=== PATIENT | male | born 1940 | race Hispanic/Latino ===

== ENCOUNTER 2020-08-01 08:02 | Observation (INO) | payer OTHER, MEDICARE ==
--- OUTSIDE RECORDS SUMMARY | 2020-08-01 08:07 | XMS REPORT | Continuity of Care Document ---
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 Diabetes 1-25 Family mellitus Mellitus 00:00: Practi c without without 00 e complicati Complicati on on Essential Essential Problem Active Gracie jazmin hypertensi Hypertensi 1-25 Fa sarah on on 00:00: Practic 00 e Pneumonia Pneumonia Problem Active Gracie jazmin 1-25 Family 00:00: Practic 00 e 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 Social History Smoking Status Start Date Stop Date Source Former Smoker [facility] daryl Medications Ordered Filled Start Stop Current Ordering Indication Dosage Frequency Signature Comments Components Source Medication Medication Date Date Medication? Clinician (SIG) Name Name allopurinol allopurinol No 1 Q1D allopurino [facility] 100 mg 100 mg l 100 mg Family tablet Take tablet Take tablet Practic 1 tablet 1 tablet Take 1 e every day every day tablet by oral by oral every day route. route. by oral route. atorvastati atorvastati No 1 Q1D atorvastat [facility] n 10 mg n 10 mg in 10 mg Famil y tablet Take tablet Take tablet Practic 1 tablet 1 tablet Take 1 e every day every day tablet by oral by oral every day route. route. by oral route. azithromyci azithromyci No 1 Q56H azithromyc [facility] n 500 mg n 500 mg in 500 mg Fa sarah tablet Take tablet Take tablet Practic 1 tablet 3 1 tablet 3 Take 1 e times a times a tablet 3 week by week by times a oral route oral route week by with meals with meals oral route for 30 for 30 with meals days. days. for 30 days. Calcium 500 Calcium 500 Calcium [facility] 1500mg 1500mg 500 1500mg Famil y total/day total/day total/day Practic e ethambutol ethambutol No 3 Q56H ethambutol [facility] 400 mg 400 mg 400 mg Family tablet Take tablet Take tablet Practic 3 tablets 3 3 tablets 3 Take 3 e times a times a tablets 3 week by week by times a oral route oral route week by with meals with meals oral route for 30 for 30 with meals days. days. for 30 days. Motrin IB Motrin IB No Motrin IB [facility] 200 mg 200 mg 200 mg Family capsule 2 capsule 2 capsule 2 Practic in AM, 1 at in AM, 1 at in AM, 1 e noon, 1 at noon, 1 at at noon, 1 4pm, 2 at 4pm, 2 at at 4pm, 2 bedtime bedtime at bedtime One A Day One A Day No 1 Q1D One A Day [facility] tablet Take tablet Take tablet Family 1 tablet 1 tablet Take 1 Pract ic every day every day tablet e by oral by oral every day route. route. by oral route. pantoprazol pantoprazol No 1 Q1D pantoprazo [facility] e 40 mg e 40 mg le 40 mg Famil y tablet,ann marie tablet,ann marie tablet,del Practic yed release yed release ayed e Take 1 Take 1 release tablet tablet Take 1 every day every day tablet by oral by oral every day route. route. by oral route. propranolol propranolol No 1 Q1D propranolo [place] 20 mg 20 mg l 20 mg Family tablet Take tablet Take tablet Practic 1 tablet 1 tablet Take 1 e every day every day tablet by oral by oral every day route. route. by oral route. rifampin rifampin No 2capsul Q56H rifampin [facility] 300 mg 300 mg e(s) 300 mg Family capsule capsule capsule Practi c Take 2 Take 2 Take 2 e capsules 3 capsules 3 capsules 3 times a times a times a week by week by week by oral route oral route oral route with meals with meals with meals for 30 for 30 for 30 days. days. days. sulfamethox sulfamethox No sulfametho [facility] azole 800 azole 800 xazole 800 Family mg-trimetho mg-trimetho mg-trimeth Practic prim 160 mg prim 160 mg oprim 160 e tablet TAKE tablet TAKE mg tablet ONE (1) ONE (1) TAKE ONE TABLET(S) TABLET(S) (1) BY MOUTH BY MOUTH TABLET(S) EVERY EVERY BY MOUTH TWELVE TWELVE EVERY HOURS FOR HOURS FOR TWELVE 14 DAYS. 14 DAYS. HOURS FOR 14 DAYS. Immunizations Ordered Immunization Filled Immunization Date Status Commen ts Source Name Name pneumococcal pneumococcal 2020-02-07 Completed [facility] sarah polysaccharide PPV23 polysaccharide PPV23 00:00:00 Practice influenza, influenza, 2020-01-[address] [facility] injectable, injectable, 00:00:00 Practice quadrivalent quadrivalent influenza, high-dose, influenza, high-dose, 2019-02-[address] [facility] quadrivalent quadrivalent 00:00:00 Practice pneumococcal, pneumococcal, 2015-04-08 [facility] unspecified unspecified 00:00:00 Practice formulation formulation Vital Signs Vital Name Observation Time Observation Value Comments Source BP Diastolic 2020-05-13 00:00:00 74 mm[Hg] [facility] Height 2020-05-13 00:00:00 68 [in_i] [facility] BMI (Body Mass 2020-05-13 00:00:00 22 kg/m2 [facility] Family Index) Practice BP Systolic 2020-05-13 00:00:00 132 mm[Hg] [facility] Body Weight 2020-05-13 00:00:00 145 [lb_av] [facility] BP Diastolic 2020-05-02 00:00:00 62 mm[Hg] [facility] Height 2020-05-02 00:00:00 68 [in_i] [facility] BMI (Body Mass 2020-05-02 00:00:00 21.7 kg/m2 [facility] Family Index) Practice BP Systolic 2020-05-02 00:00:00 126 mm[Hg] [facility] Body Weight 2020-05-02 00:00:00 143 [lb_av] [facility] Procedures Procedure Date / Time Performed Performing Clinician [facility] e X-RAY OF CHEST 2 VIEW 2020-05[facility], [facility]/o contrast 2020-05-02 00:00:00 [facility] Practice Thumb Surgery [facility] Appendectomy [facility] Plan of Care Planned Activity Planned Date Details Comments Source Diagnostic Test 2020-05-13 CBC w/ auto diff [code Vi llvashti Family Pending 00:00:00 = CBC w/ auto diff] Practice Diagnostic Test 2020-05-13 erythrocyte [facility] Fami ly Pending 00:00:00 sedimentation rate by Practi ce westergren method [code = erythrocyte sedimentation rate by westergren method] Diagnostic Test 2020-05-13 CMP, serum or plasma [facility] Pending 00:00:00 [code = CMP, serum or Practi ce plasma] Diagnostic Test 2020-05-13 mycobacterium sp, [facility] Pending 00:00:00 culture, bronchial Practice [code = mycobacterium sp, culture, bronchial] Future Appointment 2020-08-16 Sheila Teagueanthony, [facility] 13:00:00 [facility]; [address], [place] [address] Encounters Start End Encounter Admission Attending Care Care Encounter Source Date/Time Date/Time Type Type Clinicians Facility Department ID 2020-05-13 2020-05-[address] [facility] [place] - [id number] [facility] 00:00:00 00:00:[address] [facility] Pract joyce MD: [id number] kelsey [facility], [address], [place] [address] , Ph. 2020-05-06 2020-05-[address] [facility] [id number] 05:59:00 05:59:00 l [facility] 2020-05-02 2020-05-[address] [facility] [place] - [id number] [facility] 00:00:00 00:00:[address] [facility] - Pract joyce MD: [id number] GOODMANMemgonzalo kelsey [facility] [address], [place] [address] , Ph. 2020-03-24 2020-03-24 Outpatient [facility] [id number] 09:53:00 09:53:00 Reji [facility] Results Test Description Test Time Test Comments Results Result Comments Source Hypersensitivity pneumonitis panel - Serum 2020-05-07 00:00: 00 Test Item Value Reference Range Interpretation Comme nts aspergillus fumigatus (test code = aspergillus fumigatus) negative negative micropolyspora faeni (test code = micropolyspora faeni) negative negative pigeon serum (test code = pigeon serum) negative negative T. candidus (test code = T. candidus) negative negative T. vulgaris (test code = T. vulgaris) negative negative S. viridis (test code = S. viridis) negative negative [facility] [Presence] in Tissue by Immune stain 2020-05-07 00:00:00 Test Item Value Reference Range Interpretation Comments index value (test code = index <0.50 value) aspergillus Ag,EIA,serum (test not detected code = aspergillus Ag,EIA,serum) [facility] [id number] 00:00:00 Test Item Value Reference Range Interpretation Comments white blood cell count (test 8.7 thousand/uL 3.8-10.8 code = white blood cell count) red blood cell count (test 4.22 million/uL 4.20-5.80 code = red blood cell count) hemoglobin (test code = 11.9 g/dL 13.2-17.1 L hemoglobin) hematocrit (test code = 37.8 % 38.5-50.0 L hematocrit) MCV (test code = MCV) 89.6 fL 80.0-100.0 MCH (test code = MCH) 28.2 pg 27.0-33.0 MCHC (test code = MCHC) 31.5 g/dL 32.0-36.0 L RDW (test code = RDW) 14.7 % 11.0-15.0 platelet count (test code = 271 thousand/uL 140-400 platelet count) MPV (test code = MPV) 10.5 fL 7.5-12.5 [facility] by Westergren method 2020-05-03 00:00:00 Test Item Value Reference Range Interpretation Comments sed rate by modified westergren 118 mm/h < or = 20 H (test code = sed rate by modified westergren) [facility] - [id number] 00:00:00 Test Item Value Reference Range Interpretation Comments absolute neutrophils (test code 6003 cells/uL 1402-9432 = absolute neutrophils) absolute lymphocytes (test code 2175 cells/uL 850-3900 = absolute lymphocytes) absolute monocytes (test code = 435 cells/uL 200-950 absolute monocytes) absolute eosinophils (test code 0 cells/uL 15-500 L = absolute eosinophils) absolute basophils (test code = 87 cells/uL 0-200 absolute basophils) neutrophils (test code = 69.0 % neutrophils) lymphocytes (test code = 25.0 % lymphocytes) monocytes (test code = 5.0 % monocytes) eosinophils (test code = 0 % eosinophils) basophils (test code = 1.0 % basophils) CBC morphology (test code = CBC normal morphology) [facility] PracticeComprehensive metabolic 2000 panel - Serum or Plasma 2020-05-03 00:00:00 Test Item Value Reference Range Interpretation Comments ALT (test code = ALT) 25 U/L 0-55 AST (test code = AST) 31 U/L 5-34 BUN (test code = BUN) 20.1 mg/dL 8.4-25.0 alk phos (test code = alk 59 unit/L 40-150 phos) glucose (test code = 123 mg/dL 70-99 H glucose) albumin (test code = 3.6 g/dL 3.4-5.1 albumin) creatinine (test code = 1.34 mg/dL 0.72-1.25 H creatinine) eGFR non- 51 mL/min/1.73m2 A (test code = eGFR non-) total bilirubin (test code = 0.3 mg/dL 0.2-1.2 total bilirubin) eGFR - >60 (test code = eGFR - ) sodium (test code = sodium) 142 mEq/L 135-145 potassium (test code = 4.9 mEq/L 3.5-5.3 potassium) chloride (test code = 105 mmol/L 98-110 chloride) total protein (test code = 7.1 g/dL 6.1-8.2 total protein) calcium (test code = 9.2 mg/dL 9.0-10.2 calcium) CO2 (test code = CO2) 29.6 mmol/L 20.0-32.0 anion gap (test code = anion 7 calc gap) [facility]
[2020-08-01] MEDS ORDERED: NA CHLORIDE 0.9% 1,000 ML ONE ×2 (08:46→09:41)
[2020-08-01] MEDS ORDERED: FAMOTIDINE 20 MG/2 ML VIAL IV ONE (08:46)
--- NOTE | 2020-08-01 09:06 | RAD REPORT ---
EXAM DESCRIPTION: US - Abdomen Exam Limited - 08/01/2020 8:48 am CLINICAL HISTORY: evaluate gallbladder Right upper quadrant pain COMPARISON: No comparisons FINDINGS: The gallbladder demonstrates no gallstones. No pericholecystic fluid or gallbladder wall t hickening. The common bile duct is normal measuring 4 mm. The liver demonstrates no findings of intrahepatic biliary dilatation. IMPRESSION: Unremarkable examination.
--- NOTE | 2020-08-01 09:07 | RAD REPORT ---
EXAM DESCRIPTION: RAD - Chest Single View - 08/01/2020 8:37 am CLINICAL HISTORY: ABDOMINAL DISTENTION Chest pain. COMPARISON: No comparisons FINDINGS: Portable technique limits examination quality. Moderate bilateral pulmonary opacities are present, greater on the right, with trace pleural effusion s. The findings may be related to infection or pulmonary edema. The heart is upper limit normal in si ze.
[2020-08-01 09:10] LABS: Absolute Lymphocytes (CBC) 1.4 K/uL (0.7-4.9); Basophils % 0.3 % (0-1.3); Hematocrit 34.3 % (39.6-49.0); MPV 8.4 fL (7.6-11.3)
[2020-08-01 09:15] LABS: Urine Blood Trace-intact (Negative); Urine Glucose Negative (Negative); Urine Protein Trace (Negative); Urine Specific Gravity 1.015 (1.005-1.030); Urine pH 5.5 (5.0-7.0)
--- NOTE | 2020-08-01 09:15 | RAD REPORT ---
EXAM DESCRIPTION: CTAbdomen Pelvis W Contrast - 08/01/2020 8:57 am CLINICAL HISTORY: Abdominal pain. ABD PAIN COMPARISON: No comparisons TECHNIQUE: Biphasic CT imaging of the abdomen and pelvis was performed with 100 ml non-ionic IV cont rast. All CT scans are performed using dose optimization technique as appropriate and may include automated exposure control or mA/KV adjustment according to patient size. FINDINGS: Ill-defined interstitial and tree-in-bud opacities in both lung bases, greater on the righ t. Gallbladder appears distended. No aggressive liver lesion or biliary dilatation. The spleen, adrenal glands and kidneys are within normal limits. Mild edema/fluid is seen surrounding the pancreas sugges ting pancreatitis. Prominent sigmoid diverticulosis is present without diverticulitis. Moderate retained stool throughou t the rectosigmoid colon. Aortoiliac atherosclerosis. The appendix is absent. Small right fat contain ing inguinal hernia. No evidence of significant lymphadenopathy. No suspicious bony findings. IMPRESSION: Mild pancreatitis is possible. Suggest correlation with amylase and lipase levels.
[2020-08-01 09:16] LABS: Protime INR 1.04
[2020-08-01 09:29] LABS: ALT/SGPT 78 U/L (12-78); AST/SGOT 142 U/L (15-37); Albumin 3.1 g/dL (3.4-5.0); Alkaline Phosphatase 153 U/L (45-117); BUN Blood Urea Nitrogen 22 mg/dL (7-18); Bicarbonate 26 mmol/L (21-32); Bilirubin Direct 0.5 mg/dL (0-0.2); Bilirubin Total 0.8 mg/dL (0.2-1.0); Glucose Level 131 mg/dL (74-106); Lipase 11572 U/L (73-393); Magnesium 2.2 mg/dL (1.8-2.4); NT PRO-BNP 803 pg/mL (<450); Potassium 4.1 mmol/L (3.5-5.1); Protein, Total 7.9 g/dL (6.4-8.2); Sodium Level 137 mmol/L (136-145); Troponin (Emerg Dept Use Only) < 0.02 ng/mL (0.0-0.045)
--- NOTE | 2020-08-01 09:37 | ER ---
Nurse's Notes [facility] Name: Matheus Lea Age: 80 yrs Sex: Male : 1940 Arrival Date: 08/01/2020 Time: 08:05 Bed 24 Private MD: Diagnosis: Abdominal tenderness;Acute pancreatitis;Mycobacterial infection, unspecified;Type 2 diabetes mellitus Presentation: 08/01 08:15 Chief complaint: Patient states: RLQ abd pain started last night. No known fever. No mg2 N/V/D. Coronavirus screen: Client denies travel out of the [place] in the last 14 days. At this time, the client does not indicate any symptoms associated with coronavirus-19. Ebola Screen: Patient denies travel to an Ebola-affected area in the 21 days before illness onset. Initial Sepsis Screen: Does the patient meet any 2 criteria? No. Patient's initial sepsis screen is negative. Does the patient have a suspected source of infection? Yes: Acute abdominal pain. Risk Assessment: Do you want to hurt yourself or someone else? Patient reports no desire to harm self or others. Onset of symptoms was July 31, 2020. 08:15 Method Of Arrival: Ambulatory mg2 08:15 Acuity: GIOVANNI 3 mg2 08:18 Chief complaint: Patient's son or daughter states: States he had pain in his back and mg2 upper abdomen also. Triage Assessment: 08:15 General: Appears in no apparent distress. uncomfortable, slender, Behavior is calm, bp cooperative, appropriate for age. Pain: Complains of pain in epigastric area and left upper quadrant and right upper quadrant. EENT: No deficits noted. Neuro: No deficits noted. Cardiovascular: No deficits noted. Respiratory: No deficits noted. GI: Reports upper abdominal pain, epigastric pain. : No signs and/or symptoms were reported regarding the genitourinary system. Derm: No signs and/or symptoms reported regarding the dermatologic system. Musculoskeletal: No deficits noted. Historical: - Allergies: 08:18 PENICILLINS; mg2 08:21 "NOEL lung disease"; mg2 - PMHx: 08:15 Pancreatitis; Diabetes - NIDDM; no longer taking meds;lost weight; Hypertension; mg2 08:21 "NOEL lung disease"; mg2 - PSHx: 08:15 Appendectomy; mg2 - Immunization history:: Client reports receiving the 2nd dose of the Covid vaccine, Flu vaccine is up to date. - Social history:: Smoking status: Patient denies any tobacco usage or history of. - Family history:: not pertinent. Screenin:00 Abuse screen: Denies threats or abuse. Denies injuries from another. Nutritional bp screening: No deficits noted. Tuberculosis screening: No symptoms or risk factors identified. Fall Risk None identified. Assessment: 08:15 General: SEE TRIAGE NOTE. bp 08:25 General: PT TO CT AND U/S. bp 08:50 Reassessment: PT RETURNED FROM U/S AND CT. bp 09:00 Reassessment: Patient appears in no apparent distress at this time. No changes from bp previously documented assessment. Patient and/or family updated on plan of care and expected duration. Pain level reassessed. Vital Signs: 08:15 BP 177 / 64; Pulse 55; Resp 16; Temp 97.6; Pulse Ox 100% ; Weight 60.33 kg; Height 5 mg2 ft. 8 in. (172.72 cm); Pain 10/10; 09:00 BP 150 / 61; Pulse 57; Resp 17; Pulse Ox 99% ; bp 10:30 BP 181 / 62; Pulse 54; Resp 16; Pulse Ox 100% on R/A; dh4 11:30 BP 126 / 91; Pulse 55; Resp 16; Pulse Ox 99% ; dh4 12:30 BP 149 / 76; Pulse 65; Resp 16; Pulse Ox 99% on R/A; dh4 13:27 BP 141 / 71; Pulse 60; Resp 16; Pulse Ox 100% ; dh4 08:15 Body Mass Index 20.22 (60.33 kg, 172.72 cm) mg2 ED Course: 08:05 Patient arrived in ED. as 08:07 Semaj Fulton MD is Attending Physician. shae 08:10 Yaw Mata, CINTHYA is Primary Nurse. bp 08:14 Arm band placed on Patient placed in an exam room, on a stretcher. mg2 08:16 Triage completed. mg2 08:37 XRAY Chest (1 view) In Process Unspecified. EDMS 08:37 X-ray completed. Portable x-ray completed in exam room. Patient tolerated procedure sw well. 08:48 US Abdomen Limited In Process Unspecified. EDMS 08:50 Inserted saline lock: 20 gauge in right forearm, using aseptic technique. Blood bp collected. 08:57 CT Abd/Pelvis - IV Contrast Only In Process Unspecified. EDMS 09:00 Patient has correct armband on for positive identification. Bed in low position. Call bp light in reach. Side rails up X2. Adult w/ patient. 09:33 Ranjan Montaño is Hospitalizing Provider. shae 19:19 Primary Nurse role handed off by Yaw Mata, RN mw2 Administered Medications: 08:50 Drug: NS 0.9% 1000 ml Route: IV; Rate: 125 ml/hr; Site: right forearm; bp 08:50 Drug: Pepcid (famotidine) 20 mg Route: IVP; Site: right forearm; bp 11:10 Follow up: Response: Nausea is decreased bp 09:15 Drug: NS 0.9% 1000 ml Route: IV; Rate: 1 bolus; Site: right forearm; bp 10:55 Drug: levofloxacin 500 mg Volume: 100 ml; Route: IVPB; Infused Over: 60 mins; Site: bp right antecubital; Outcome: 09:36 Decision to Hospitalize by Provider. shae 20:36 Patient left the ED. iw Signatures: Dispatcher [employer] EDMS Semaj Fulton MD MD cha Martinez, Amelia as Williams, Irene, Angela Braun RN, Brian, CINTHYA RN Magalys Mchugh mw2 Raman Torres RN RN [facility] Bethel Vargas [facility]
--- NOTE | 2020-08-01 09:37 | EDPHYS ---
Physician Documentation [facility] Name: Matheus Lea Age: 80 yrs Sex: Male : 1940 Arrival Date: 08/01/2020 Time: 08:05 Bed 24 Private MD: AMY Physician Semaj Fulton HPI: 08/01 08:39 This 80 yrs old Male presents to ER via Ambulatory with complaints of sahe Abdominal Pain. 08:39 The patient presents with abdominal pain in the epigastric area, in the upper abdomen, shae right lower quadrant, abdominal distention in the upper abdomen, in the lower abdomen. Onset: The symptoms/episode began/occurred 3 day(s) ago. The symptoms do not radiate. Associated signs and symptoms: none. The symptoms are described as crampy, dull. Modifying factors: The symptoms are alleviated by nothing, the symptoms are aggravated by food, movement, pressure. Severity of pain: At its worst the pain was moderate in the emergency department the pain is unchanged. The patient has experienced similar episodes in the past, multiple times. Historical: - Allergies: 08:18 PENICILLINS; mg2 08:21 "NOEL lung disease"; mg2 - PMHx: 08:15 Pancreatitis; Diabetes - NIDDM; no longer taking meds;lost weight; Hypertension; mg2 08:21 "NOEL lung disease"; mg2 - PSHx: 08:15 Appendectomy; mg2 - Immunization history:: Client reports receiving the 2nd dose of the Covid vaccine, Flu vaccine is up to date. - Social history:: Smoking status: Patient denies any tobacco usage or history of. - Family history:: not pertinent. ROS: 08:39 Constitutional: Negative for fever, chills, and weight loss, Eyes: Negative for injury, shae pain, redness, and discharge, ENT: Negative for injury, pain, and discharge, Neck: Negative for injury, pain, and swelling, Cardiovascular: Negative for chest pain, palpitations, and edema, Respiratory: Negative for shortness of breath, cough, wheezing, and pleuritic chest pain, Back: Negative for injury and pain, : Negative for injury, bleeding, discharge, and swelling, MS/Extremity: Negative for injury and deformity, Skin: Negative for injury, rash, and discoloration, Neuro: Negative for headache, weakness, numbness, tingling, and seizure, Psych: Negative for depression, anxiety, suicide ideation, homicidal ideation, and hallucinations, Allergy/Immunology: Negative for hives, rash, and allergies, Endocrine: Negative for neck swelling, polydipsia, polyuria, polyphagia, and marked weight changes, Hematologic/Lymphatic: Negative for swollen nodes, abnormal bleeding, and unusual bruising. 08:39 Abdomen/GI: Positive for abdominal pain, nausea and vomiting, abdominal cramps, abdominal distension, of the right upper quadrant and left upper quadrant. Exam: 08:39 Constitutional: This is a well developed, well nourished patient who is awake, alert, shae and in no acute distress. Head/Face: Normocephalic, atraumatic. Eyes: Pupils equal round and reactive to light, extra-ocular motions intact. Lids and lashes normal. Conjunctiva and sclera are non-icteric and not injected. Cornea within normal limits. Periorbital areas with no swelling, redness, or edema. ENT: Nares patent. No nasal discharge, no septal abnormalities noted. Tympanic membranes are normal and external auditory canals are clear. Oropharynx with no redness, swelling, or masses, exudates, or evidence of obstruction, uvula midline. Mucous membranes moist. Neck: Trachea midline, no thyromegaly or masses palpated, and no cervical lymphadenopathy. Supple, full range of motion without nuchal rigidity, or vertebral point tenderness. No Meningismus. Chest/axilla: Normal chest wall appearance and motion. Nontender with no deformity. No lesions are appreciated. Cardiovascular: Regular rate and rhythm with a normal S1 and S2. No gallops, murmurs, or rubs. Normal PMI, no JVD. No pulse deficits. Respiratory: Lungs have equal breath sounds bilaterally, clear to auscultation and percussion. No rales, rhonchi or wheezes noted. No increased work of breathing, no retractions or nasal flaring. Back: No spinal tenderness. No costovertebral tenderness. Full range of motion. Male : Normal genitalia with no discharge or lesions. Skin: Warm, dry with normal turgor. Normal color with no rashes, no lesions, and no evidence of cellulitis. MS/ Extremity: Pulses equal, no cyanosis. Neurovascular intact. Full, normal range of motion. Neuro: Awake and alert, GCS 15, oriented to person, place, time, and situation. Cranial nerves II-XII grossly intact. Motor strength 5/5 in all extremities. Sensory grossly intact. Cerebellar exam normal. Normal gait. Psych: Awake, alert, with orientation to person, place and time. Behavior, mood, and affect are within normal limits. 08:39 Abdomen/GI: Inspection: distension, Bowel sounds: normal, Palpation: mild abdominal tenderness, in the epigastric area, right upper quadrant and left upper quadrant, Liver: no appreciated palpable abnormalities, Hernia: not appreciated. 14:40 ECG was reviewed by the Attending Physician. shae Vital Signs: 08:15 BP 177 / 64; Pulse 55; Resp 16; Temp 97.6; Pulse Ox 100% ; Weight 60.33 kg; Height 5 mg2 ft. 8 in. (172.72 cm); Pain 10/10; 09:00 BP 150 / 61; Pulse 57; Resp 17; Pulse Ox 99% ; bp 10:30 BP 181 / 62; Pulse 54; Resp 16; Pulse Ox 100% on R/A; dh4 11:30 BP 126 / 91; Pulse 55; Resp 16; Pulse Ox 99% ; dh4 12:30 BP 149 / 76; Pulse 65; Resp 16; Pulse Ox 99% on R/A; dh4 13:27 BP 141 / 71; Pulse 60; Resp 16; Pulse Ox 100% ; dh4 08:15 Body Mass Index 20.22 (60.33 kg, 172.72 cm) mg2 MDM: 08:07 Patient medically screened. shae 08:42 Differential diagnosis: AAA, appendicitis, bowel obstruction, cholecystitis, shae Cholelithiasis, diverticulitis, gastritis, gastroesophageal reflux disease, non-specific abd pain, pancreatitis, Peptic Ulcer Disease, Peritonitis, Ureterolithiasis, urinary tract infection. Data reviewed: vital signs, nurses notes, lab test result(s), EKG, radiologic studies, CT scan, plain films. Data interpreted: phototypesetting equipment monitor: rate is 55 beats/min, rhythm is regular. Test interpretation: by ED physician or midlevel provider: ECG, plain radiologic studies. Counseling: I had a detailed discussion with the patient and/or guardian regarding: the historical points, exam findings, and any diagnostic results supporting the discharge/admit diagnosis, lab results, radiology results, the need for further work-up and treatment in the [facility]. 08/01 08:10 Order name: Basic Metabolic Panel [facility] 08/01 08:10 Order name: CBC with Diff [facility] 08/01 08:10 Order name: LFT's [facility] 08/01 08:10 Order name: Magnesium; Complete Time: 09:30 [facility] 08/01 08:10 Order name: NT PRO-BNP; Complete Time: 09:30 [facility] 08/01 08:10 Order name: PT-INR; Complete Time: 09:27 [facility] 08/01 08:10 Order name: Troponin (emerg Dept Use Only); Complete Time: 09:30 [facility] 08/01 08:10 Order name: Lipase; Complete Time: 09:30 [facility] 08/01 08:10 Order name: Urine Culture [facility] 08/01 08:11 Order name: Basic Metabolic Panel; Complete Time: 09:30 [facility]MT 08/01 08:11 Order name: CBC with Automated Diff; Complete Time: 09:27 EDMT 08/01 08:11 Order name: Liver (Hepatic) Function; Complete Time: 09:30 [facility] 08/01 08:31 Order name: Lipid Profile 08/01 09:13 Order name: CREATININE WHOLE BLOOD; Complete Time: 09:27 [facility] 08/01 08:10 Order name: XRAY Chest (1 view); Complete Time: 09:27 [facility] 08/01 08:10 Order name: EKG; Complete Time: 08:11 [facility] 08/01 08:10 Order name: Cardiac monitoring; Complete Time: 08:14 [facility] 08/01 08:10 Order name: EKG - Nurse/Tech; Complete Time: 14:19 [facility] 08/01 08:10 Order name: CT Abd/Pelvis - IV Contrast Only; Complete Time: 09:27 [facility] 08/01 08:31 Order name: US Abdomen Limited; Complete Time: 09:27 08/01 09:15 Order name: Urine Dipstick-Ancillary; Complete Time: 09:27 [facility] 08/01 09:28 Order name: Blood Culture Adult (2) [facility] 08/01 12:28 Order name: COVID-19 : Document "Date of Symptom Onset" if Symptomatic. 4 08/01 13:16 Order name: CORONAVIRUS [facility] 08/01 14:37 Order name: SARS-COV-2 RT PCR [facility] 08/01 17:20 Order name: Glucose, Ancillary Testing [facility] 08/01 08:10 Order name: IV Saline Lock; Complete Time: : [facility] 08/01 08:10 Order name: Labs collected and sent; Complete Time: [facility] 08/01 08:10 Order name: O2 Per Protocol; Complete Time: : [facility] 08/01 08:10 Order name: O2 Sat Monitoring; Complete Time: 08: [facility] 08/01 08:10 Order name: Urine Dipstick-Ancillary (obtain specimen); Complete Time: [facility] EC:40 Rate is 52 beats/min. Rhythm is regular. QRS [place] is Normal. ID interval is normal. QRS shae interval is normal. QT interval is normal. No Q waves. T waves are Normal. No ST changes noted. Clinical impression: Sinus bradycardia and No evidence of ischemia. Interpreted by me. Reviewed by me. Administered Medications: 08:50 Drug: NS 0.9% 1000 ml Route: IV; Rate: 125 ml/hr; Site: right forearm; bp 08:50 Drug: Pepcid (famotidine) 20 mg Route: IVP; Site: right forearm; bp 11:10 Follow up: Response: Nausea is decreased bp 09:15 Drug: NS 0.9% 1000 ml Route: IV; Rate: 1 bolus; Site: right forearm; bp 10:55 Drug: levofloxacin 500 mg Volume: 100 ml; Route: IVPB; Infused Over: 60 mins; Site: bp right antecubital; Disposition: 08/01/20 09:36 Hospitalization ordered by Ranjan Montaño for Inpatient Admission. Preliminary diagnosis are Abdominal tenderness, Acute pancreatitis, Mycobacterial infection, unspecified, Type 2 diabetes mellitus. - Bed requested for Telemetry/MedSurg (Inpatient). - Status is Inpatient Admission. iw - Condition is Fair. - Problem is new. - Symptoms have improved. Signatures: Dispatcher [employer] EDMS Charmaine Saab Corey, MD MD cha Williams, Irene, RN RN iw Jesika Rider RN RN Yaw Phillips RN RN bp Gardose, Michele, RN RN mg2 Corrections: (The following items were deleted from the chart) 14:02 09:36 Hospitalization Ordered by Ranjan Montaño for Inpatient Admission. Preliminary bd diagnosis is Abdominal tenderness; Acute pancreatitis; Mycobacterial infection, unspecified; Type 2 diabetes mellitus. Bed requested for Telemetry/MedSurg (Inpatient). Status is Inpatient Admission. Condition is Fair. Problem is new. Symptoms have improved. shae 17:32 14:02 08/01/2020 09:36 Hospitalization Ordered by Ranjan Montaño for Inpatient aa5 Admission. Preliminary diagnosis is Abdominal tenderness; Acute pancreatitis; Mycobacterial infection, unspecified; Type 2 diabetes mellitus. Bed requested for [facility] ER HOLD. Status is Inpatient Admission. Condition is Fair. Problem is new. Symptoms have improved. bd 20:36 17:32 08/01/2020 09:36 Hospitalization Ordered by Ranjan Montaño for Inpatient iw Admission. Preliminary diagnosis is Abdominal tenderness; Acute pancreatitis; Mycobacterial infection, unspecified; Type 2 diabetes mellitus. Bed requested for Telemetry/MedSurg (Inpatient). Status is Inpatient Admission. Condition is Fair. Problem is new. Symptoms have improved. aa5
[2020-08-01] MEDS ORDERED: Levofloxacin500mg IV 500 MG/100 ML BAG IV ONE (11:17)
[2020-08-01] MEDS: INSULIN -REGULAR HUMAN 50 UNIT/0.5 ML ML SQ SCH ×2 (16:20→17:10)
[2020-08-01] MEDS ORDERED: SODIUM CHLORIDE 0.9% 10ML INJ IV PRN (16:20)
[2020-08-01] MEDS ORDERED: HYDRALAZINE HCL 20 MG/ML VIAL IV PRN (16:20)
[2020-08-01] MEDS ORDERED: ACETAMINOPHEN 500 MG TAB PO PRN (16:20)
[2020-08-01] MEDS ORDERED: KETOROLAC 30 MG/ML INJ IV PRN (16:20)
[2020-08-01] MEDS ORDERED: ONDANSETRON 4 MG/2 ML VIAL IV PRN (16:20)
[2020-08-01] MEDS ORDERED: ACETAMINOPHEN 650MG/RECT SUPP PR PRN (16:20)
[2020-08-01] MEDS: D5 0.9 NS 1,000 ML IV SCH (16:30)
[2020-08-01] MEDS ORDERED: D5W 1,000 ML IV ONE (16:42)
[2020-08-01 17:22] VITALS: BMI 25.4
[2020-08-01 18:24] VITALS: O2SAT 98
--- NOTE | 2020-08-01 19:48 | P.HP ---
Certification for Inpatient Patient admitted to: Observation With expected LOS: <2 Midnights Patient will require the following post-hospital care: None Practitioner: I am a practitioner with admitting privileges, knowledge of patient current condition, hospital course, and medical plan of care. Services: Services provided to patient in accordance with Admission requirements found in Title 42 Section 412.3 of the Code of Federal Regulations Patient History Date of Service: 08/01/20 Reason for admission: Abdominal pain History of Present Illness: Patient is an 80 year old male with a PMHx significant for DM 2, Pancreatitis, HTN, Mycobacterium avium-intracellulare, Gout, GERD who presents with c\o of right upper quadrant pain onset today. Patient rated pain as 10\10 and described pain as arching in quality. Patient reports that pain radiates to his back and bilateral flanks areas. Patient denies any other s\s. Symptoms are aggravated by palpation and relieved mildly by pain medication. Patient decided to present to the hospital due to worsening symptoms. Allergies No Known Allergies Allergy (Verified 08/01/20 15:57) Home medications list reviewed: Yes Home Medications: Allopurinol 100 mg PO DAILY 08/01/20 Azithromycin 500 mg PO ,,08/01/20 Ethambutol HCl [Myambutol] 1,200 mg PO ,,08/01/20 Latanoprost/Pf [Latanoprost 0.005% Eye Drop] 7.5 ml OP BEDTIME 08/01/20 Pantoprazole [Protonix Tab] 40 mg PO DAILY 08/01/20 Propranolol HCl 20 mg PO BID 08/01/20 rifAMPin [Rifampin] 600 mg PO ,,08/01/20 - Past Medical/Surgical History Has patient received pneumonia vaccine in the past: Yes Diabetic: Yes -: HTN -: DM -: Pancreatitis -: Appendectomy - Social History Smoking Status: Never smoker Alcohol use: No CD- Drugs: No Caffeine use: No Place of Residence: Home Review of Systems General: Unremarkable Eyes: Unremarkable ENT: Unremarkable Respiratory: Unremarkable Cardiovascular: Unremarkable Gastrointestinal: Abdominal Pain Genitourinary: Unremarkable Musculoskeletal: Unremarkable Integumentary: Unremarkable Neurological: Unremarkable Lymphatics: Unremarkable Physical Examination - Vital Signs Temperature: 98.3 F Blood Pressure: 132/71 Pulse: 79 Respirations: 18 Pulse Ox (%): 98 - Physical Exam General: Alert, In no apparent distress, Oriented x3 HEENT: Normocephalic, PERRLA, EOMI Neck: 2+ carotid pulse no bruit, JVD not distended Respiratory: Clear to auscultation bilaterally, Normal air movement Cardiovascular: No edema, Normal pulses, Regular rate/rhythm, Normal S1 S2 Capillary refill: <2 Seconds Gastrointestinal: Normal bowel sounds, Non-distended Musculoskeletal: No clubbing, No swelling Integumentary: No rashes, No breakdown Neurological: Normal gait, Normal speech Lymphatics: No axilla or inguinal lymphadenopathy Urinary: Other (Unremarkable ) External genitalia: No edema Rectal: Normal - Studies Laboratory Data (last 24 hrs) 08/01/20 08:50: Triglycerides 111, Cholesterol 197, HDL Cholesterol 34 L, Cholesterol/HDL Ratio 5.79 08/01/20 08:50: PT 12.0, INR 1.04 08/01/20 08:50: WBC 11.30 H, Hgb 11.5 L, Hct 34.3 L, Plt Count 175 08/01/20 08:50: Sodium 137, Potassium 4.1, BUN 22 H, Creatinine 1.18, Glucose 131 H, Magnesium 2.2, Total Bilirubin 0.8, AST 142 H, ALT 78, Alkaline Phosphatase 153 H, Lipase 84270 H Male Exam - Male Exam Scrotum: No lesions Assessment and Plan - Plan --Acute on chronic pancreatitis exacerbation. Lipase elevated @ We will keep patient NPO. Continue IV hydration. Will reassess lipase in am. --Acute pain. We will manage pain with current pain medication regimen --DM2. Controlled on diet. Will hold off on BS monitoring. Continue supportive care --Hx of Mycobacterium avium-intracellulare. Patient follows up with O/P infectious disease MD. Continue home antibiotics regimen --GERD. Continue protonix --Gout. Continue home medication --Hypertension. Poorly controlloed. Continue home medication and hydralazine prn --DVT prophylaxis with Heparin subQ. Plan to discharge in: 48 Hours - Advance Directives Does patient have a Living Will: No Does patient have a Durable POA for Healthcare: No - Code Status/Comfort Care Code Status Assessed: Yes Code Status: Full Code Physician Review: Patient Assessed, Agree with Above Assessment and Plan Critical Care: No
[2020-08-01] MEDS: HEPARIN 5000 UNIT/ML 1 ML VIAL SQ SCH (21:13)
[2020-08-02] MEDS: D5 0.9 NS 1,000 ML IV SCH (05:48)
[2020-08-02] MEDS: INSULIN -REGULAR HUMAN 50 UNIT/0.5 ML ML SQ SCH ×3 (05:49→12:00)
[2020-08-02 06:03] LABS: Absolute Lymphocytes (CBC) 1.5 K/uL (0.7-4.9); Basophils % 0.3 % (0-1.3); Hematocrit 33.6 % (39.6-49.0); Lymphocytes % 20.5 % (15.3-44.8); MPV 8.2 fL (7.6-11.3); RBC Red Blood Cell Count 3.84 M/uL (4.33-5.43)
[2020-08-02 06:13] LABS: Albumin 2.7 g/dL (3.4-5.0); Bilirubin Total 0.6 mg/dL (0.2-1.0); Magnesium 2.1 mg/dL (1.8-2.4); Potassium 3.5 mmol/L (3.5-5.1); Protein, Total 7.2 g/dL (6.4-8.2)
[2020-08-02] MEDS ORDERED: KCL 20 MEQ/100 mL IVPB 20 MEQ/100 ML BAG IV SCH (07:30)
[2020-08-02] MEDS ORDERED: POTASSIUM CL SA 10 MEQ TAB PO ONE (09:00)
[2020-08-02] MEDS: HEPARIN 5000 UNIT/ML 1 ML VIAL SQ SCH (09:00)
[2020-08-02] MEDS ORDERED: PANTOPRAZOLE 40 MG INJ IVP SCH (09:00)
--- NOTE | 2020-08-02 11:15 | EKG ---
Test Date: 2020-08-01 Test Time: 14:10:07 Cut Off Saw Set Up Operator: GAGE MEASUREMENT RESULTS: Intervals: Rate: 52 VT: 142 QRSD: 80 QT: 456 QTc: 424 [place]: P: 33 VT: 142 QRS: 23 T: 25 INTERPRETIVE STATEMENTS: Sinus bradycardia with marked sinus arrhythmia Otherwise normal ECG No previous ECG available for comparison Electronically Signed On 08-02-20 11:13:31 CDT by Yang Casiano
--- NOTE | 2020-08-02 11:38 | P.DS ---
Admission Date: 08/01/20 Discharge Date: 08/02/20 Primary Care Provider: unknown; GI-Dr. Solares([facility]) Disposition: ROUTINE DISCHARGE Discharge Condition: GOOD Reason for Admission: Abdominal pain Consultations: none Procedures: COVID: Negative ABUS: COMPARISON: No comparisons FINDINGS: The gallbladder demonstrates no gallstones. No pericholecystic fluid or gallbladder wall thickening. The common bile duct is normal measuring 4 mm. The liver demonstrates no findings of intrahepatic biliary dilatation. IMPRESSION: Unremarkable examination. CT scan: COMPARISON: No comparisons TECHNIQUE: Biphasic CT imaging of the abdomen and pelvis was performed with 100 ml non-ionic IV contrast. All CT scans are performed using dose optimization technique as appropriate and may include automated exposure control or mA/KV adjustment according to patient size. FINDINGS: Ill-defined interstitial and tree-in-bud opacities in both lung bases, greater on the right. Gallbladder appears distended. No aggressive liver lesion or biliary dilatation. The spleen, adrenal glands and kidneys are within normal limits. Mild edema/fluid is seen surrounding the pancreas suggesting pancreatitis. Prominent sigmoid diverticulosis is present without diverticulitis. Moderate retained stool throughout the rectosigmoid colon. Aortoiliac atherosclerosis. The appendix is absent. Small right fat containing inguinal hernia. No evidence of significant lymphadenopathy. No suspicious bony findings. IMPRESSION: Mild pancreatitis is possible. Suggest correlation with amylase and lipase levels. Medical problem list: Acute on chronic pancreatitis acute on chronic pancreatitis History of Mycobacterium avium complex GERD Gout Hypertension Anemia of chronic disease Brief History of Present Illness: 80 year old male with a PMHx significant for DM 2, Pancreatitis, HTN, Mycobacterium avium-intracellulare, Gout, GERD who presents with c\o of right upper quadrant pain onset today. Patient rated pain as 10\10 and described pain as arching in quality. Patient reports that pain radiates to his back and bilateral flanks areas. Patient denies any other s\s. Symptoms are aggravated by palpation and relieved mildly by pain medication. Patient was admitted for further evaluation and treatment. Hospital Course: Patient presented with abdominal pain secondary to acute on chronic pancreatitis. Patient was admitted for further evaluation and treatment. Abdominal ultrasound unremarkable showing no acute blockage or stone. CT scan showed mild pancreatitis. [facility] the recent past. 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 This is being followed closely. The patient did well in the course of his stay. His diet was advanced. Lipase improved. At discharge he is without significant abdominal pain, nausea and vomiting. Patient will continue with bland soft diet then advance to heart healthy as tolerated. Recommend follow-up with GI at [facility] to further monitor and address. Dietary recommendations provided. Recommend follow-up with PCP to further monitor and address. Education on pancreatitis provided. Patient with hypertension. This appears stable. At discharge patient will continue with propanolol 20 mg 1 pill twice daily. Patient with history of Mycobacterium avium complex. Patient is seen by infectious disease. At discharge patient will continue with his current medications of Zithromax 500 mg every Saturday, Saturday and Saturday, ethambutol 1200 mg every Saturday, and Saturday, and rifampin 600 mg every Saturday, Saturday and Saturday. Recommend follow-up with infectious disease to further monitor. Patient with gout. At discharge patient will continue with allopurinol as directed. Patient with GERD. At discharge patient will continue with Protonix 40 mg daily. Vital Signs/Physical Exam: Temp Pulse Resp BP Pulse Ox 98.3 F 79 18 132/71 98 08/02/20 10:35 08/02/20 10:35 08/02/20 10:35 08/02/20 10:35 08/02/20 10:35 General: Alert, In no apparent distress, Oriented x3, Cooperative HEENT: Atraumatic Neck: Supple Respiratory: Clear to auscultation bilaterally, Normal air movement Cardiovascular: Normal pulses, Regular rate/rhythm Gastrointestinal: Normal bowel sounds, Soft and benign, Non-distended, No tenderness, No masses, No rebound, No guarding Musculoskeletal: No erythema, No tenderness, No warmth Integumentary: No tenderness/swelling Neurological: Normal speech, Normal strength at 5/5 x4 extr, Normal tone, Normal affect Laboratory Data at Discharge: WBC 7.50 K/uL (4.3-10.9) D 08/02/20 05:44 Hgb 11.3 g/dL (13.6-17.9) L 08/02/20 05:44 Hct 33.6 % (39.6-49.0) L 08/02/20 05:44 Plt Count 178 K/uL (152-406) 08/02/20 05:44 PT 12.0 SECONDS (9.5-12.5) 08/01/20 08:50 INR 1.04 08/01/20 08:50 Sodium 138 mmol/L (136-145) 08/02/20 05:44 Potassium 3.5 mmol/L (3.5-5.1) 08/02/20 05:44 BUN 17 mg/dL (7-18) 08/02/20 05:44 Creatinine 1.00 mg/dL (0.55-1.3) 08/02/20 05:44 Glucose 117 mg/dL (74-106) H 08/02/20 05:44 Magnesium 2.1 mg/dL (1.8-2.4) 08/02/20 05:44 Total Bilirubin 0.6 mg/dL (0.2-1.0) 08/02/20 05:44 AST 57 U/L (15-37) H 08/02/20 05:44 ALT 51 U/L (12-78) 08/02/20 05:44 Alkaline Phosphatase 121 U/L (45-117) H 08/02/20 05:44 Triglycerides 111 mg/dL (<150) 08/01/20 08:50 Cholesterol 197 mg/dL (<200) 08/01/20 08:50 HDL Cholesterol 34 mg/dL (40-60) L 08/01/20 08:50 Cholesterol/HDL Ratio 5.79 08/01/20 08:50 Lipase 540 U/L (73-393) H 08/02/20 05:44 Home Medications: Allopurinol 100 mg PO DAILY 08/01/20 Azithromycin 500 mg PO ,,08/01/20 Ethambutol HCl [Myambutol] 1,200 mg PO T,,S 08/01/20 Latanoprost/Pf [Latanoprost 0.005% Eye Drop] 7.5 ml OP BEDTIME 08/01/20 Pantoprazole [Protonix Tab*] 40 mg PO DAILY 08/01/20 Propranolol HCl 20 mg PO BID 08/01/20 rifAMPin [Rifampin] 600 mg PO ,W,08/01/20 Physician Discharge Instructions: Patient presented with abdominal pain secondary to acute on chronic pancreatitis. Patient was admitted for further evaluation and treatment. Abdominal ultrasound unremarkable showing no acute blockage or stone. CT scan showed mild pancreatitis. Patient has seen specialistGI at [facility] in the recent past. 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 This is being followed closely. The patient did well in the course of his stay. His diet was advanced. Lipase improved. At discharge he is without significant abdominal pain, nausea and vomiting. Patient will continue with bland soft diet then advance to heart healthy as tolerated. Recommend follow-up with GI at [facility] to further monitor and address. Dietary recommendations provided. Recommend follow-up with PCP to further monitor and address. Education on pancreatitis provided. Patient with hypertension. This appears stable. At discharge patient will continue with propanolol 20 mg 1 pill twice daily. Patient with history of Mycobacterium avium complex. Patient is seen by infectious disease. At discharge patient will continue with his current medications of Zithromax 500 mg every Saturday, Saturday and Saturday, ethambutol 1200 mg every Saturday, and Saturday, and rifampin 600 mg every Saturday, Saturday and Saturday. Recommend follow-up with infectious disease to further monitor. Patient with gout. At discharge patient will continue with allopurinol as directed. Patient with GERD. At discharge patient will continue with Protonix 40 mg daily. Diet: AHA Activity: Ad nacho Followup: NONE,NONE [Primary Care Provider] - Time spent managing pt's care (in minutes): 55
[2020-08-02 12:29] VITALS: BP 156/82; TEMP 97.3
== END 2020-08-02 13:08 | disposition home or self-care (01) ==
LOC: ER 08:02 → ERHOLD 10:39 → 2ND 19:58
PROVIDERS: ADMIT Internal Medicine; ATTEND Hospitalist
DX: K85.90 Acute pancreatitis without necrosis or infection, unspecified (principal); A31.0 Pulmonary mycobacterial infection; I10 Essential (primary) hypertension; M10.9 Gout, unspecified; K21.9 Gastro-esophageal reflux disease without esophagitis; K86.2 Cyst of pancreas; E11.9 Type 2 diabetes mellitus without complications; D63.8 Anemia in other chronic diseases classified elsewhere; Z88.0 Allergy status to penicillin; Z20.822 Contact with and (suspected) exposure to COVID-19
CPT/HCPCS: 93005; 87040 ×2; 87088; 85025 ×2; 87086; 80048; 36415; 83735 ×2; 85610; 80061; 82565; 82947 ×5; 80076; 81003; 84484; 83690 ×2; 80053; 83880; 74177; 71045; 76705; 99284; U0003; Q9967; J1644 ×2; C9113; J7042; J7030 ×2; G0378; J3480